=== PATIENT | male | born 1995 | race Caucasian/White ===

== ENCOUNTER 2016-09-01 11:06 | Emergency (ER) | payer SELFPAY ==
[~2016-09-01] VITALS: Wt 78.5 kg
[~2016-09-01 11:06] MED LIST: AZIT250T94 PO; HYDR-3498 PO; IBUP-1542 PO; IBUP800T25 PO; NAPR-260 PO; PEN500 PO
== END 2016-09-01 14:30 | disposition left against medical advice (07) ==
LOC: FTE 11:06
DX: Z53.21 Procedure and treatment not carried out due to patient leaving prior to being seen by health care provider (principal)

== ENCOUNTER 2016-11-12 20:50 | Emergency (ER) | payer OTHER ==
[~2016-11-12] VITALS: Ht 175.3 cm; Wt 85.0 kg
[2016-11-12 20:54] VITALS: Ht 175.3 cm; Wt 85.0 kg
[2016-11-12] MEDS ORDERED: SOD CHLORIDE 0.9% 1,000 ML IV STA (21:41)
[2016-11-12] MEDS ORDERED: ONDANSETRON 4 MG INJ IV STA (21:41)
[2016-11-12] MEDS ORDERED: HYDROCODONE/APAP (5/325) TAB PO ONE (22:00)
[2016-11-12 22:36] LABS: ADD SCAN DIFF NO
[2016-11-12 22:42] LABS: BASOPHILS % 0.2 % (0.0-2.0); EOSINOPHILS # 0.1 10^3/ul (0.0-0.5); EOSINOPHILS % 0.7 % (0.0-7.0); HEMATOCRIT 47.4 % (42.0-52.0); LYMPHOCYTES # 0.7 10^3/ul (0.8-2.9); LYMPHOCYTES % 7.7 % (15.0-51.0); MEAN CORPUSCULAR HEMOGLOBIN 29.9 pg (29.0-33.0); MEAN CORPUSCULAR HGB CONC 33.8 g/dl (32.0-37.0); MEAN CORPUSCULAR VOLUME 88.4 fl (82.0-101.0); MEAN PLATELET VOLUME 10.8 fl (7.4-10.4); MONOCYTE # 1.2 10^3/ul (0.3-0.9); MONOCYTES % 12.2 % (0.0-11.0); NEUTROPHIL # 7.5 10^3/ul (1.6-7.5); PLATELET COUNT 270 10^3/UL (140-415); RED BLOOD COUNT 5.36 10^6/ul (4.70-6.10); WHITE BLOOD COUNT 9.4 10^3/ul (4.8-10.8)
[2016-11-12 22:48] LABS: POTASSIUM 3.7 mmol/L (3.5-5.1)
--- NOTE | 2016-11-12 22:48 | RADRPT ---
PROCEDURE: X-ray right foot. CLINICAL INDICATION: Right foot trauma with generalized pain. TECHNIQUE: 3 views right foot. COMPARISON: None. FINDINGS: No acute fracture or dislocation. Soft tissues unremarkable. IMPRESSION: No acute fracture or dislocation. RPTAT: UU Physician Diaz Date Time Electronically viewed and signed by Physician Diaz on 11/12/2016 22:47 RS/
[2016-11-12 22:50] LABS: INR 0.99; PARTIAL THROMBOPLASTIN TIME 32.6 Sec (25.0-35.0); PROTIME 13.1 Sec (12.2-14.2)
[2016-11-12 22:51] LABS: CREATININE 0.77 mg/dl (0.61-1.24)
[2016-11-12 22:52] LABS: CALCIUM 9.5 mg/dl (8.4-10.2)
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
[2016-11-13] MEDS ORDERED: HYDR-906 PO (00:10)
[2016-11-13] MEDS ORDERED: HYDROCODONE/APAP (5/325) TAB PO ONE (00:30)
[2016-11-13 01:31] VITALS: BP 134/78; PULSE 79; RESP 18; TEMP 98.6
== END 2016-11-13 01:32 | disposition home or self-care (01) ==
LOC: FTE 20:50
DX: R51 Headache (principal); R55 Syncope and collapse; R11.2 Nausea with vomiting, unspecified
CPT/HCPCS: 70450; 73630; 80048; 82962; 85025; 85610; 85730; 93005; J2405; J7030; Z7610; 36415; 96374

== ENCOUNTER 2017-05-18 13:29 | Emergency (ER) | payer OTHER ==
[~2017-05-18] VITALS: Ht 172.7 cm; Wt 90.0 kg
[~2017-05-18 13:29] MED LIST changes: +HYDR-906 PO; -PEN500 PO; +PENI500T PO
[2017-05-18 13:34] VITALS: Ht 172.7 cm; Wt 90.0 kg
[2017-05-18] MEDS ORDERED: IBUP-1542 PO (15:32)
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
== END 2017-05-18 16:01 | disposition home or self-care (01) ==
LOC: FTE 13:29
DX: G62.9 Polyneuropathy, unspecified (principal)
CPT/HCPCS: 29125; Z7502; Z7610

== ENCOUNTER 2019-01-04 19:03 | Emergency (ER) | payer OTHER ==
[~2019-01-04] VITALS: Wt 98.4 kg
[~2019-01-04 19:03] MED LIST changes: +ACET500C5 PO; +AZIT250T PO; -AZIT250T94 PO; +HYDR-4011 PO; -HYDR-906 PO; -IBUP800T25 PO; +IBUP800T48 PO; +MECL12.574 PO; -NAPR-260 PO; +NAPR-985 PO; +ONDA4TAB14 PO
[2019-01-04 19:09] VITALS: BP 147/75; PULSE 91; RESP 18
[2019-01-04] MEDS ORDERED: LIDOCAINE 1% (MPF) 5 ML VIAL INJ ONE (20:00)
[2019-01-04] MEDS ORDERED: BACI28.34 TOP (20:59)
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
== END 2019-01-04 21:09 | disposition home or self-care (01) ==
LOC: FTE 19:03
DX: S61.212A Laceration without foreign body of right middle finger without damage to nail, initial encounter (principal); W26.8XXA Contact with other sharp object(s), not elsewhere classified, initial encounter; Y92.9 Unspecified place or not applicable
CPT/HCPCS: 12001; 73130; Z7502; Z7610

== ENCOUNTER 2019-01-11 20:27 | Emergency (ER) | payer OTHER ==
[~2019-01-11] VITALS: Ht 175.3 cm; Wt 97.6 kg
[~2019-01-11 20:27] MED LIST changes: +BACI28.34 TOP
[2019-01-11 20:38] VITALS: Ht 175.3 cm; Wt 97.6 kg
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
[2019-01-11 23:23] VITALS: BP 163/92; PULSE 75; RESP 16
== END 2019-01-11 23:25 | disposition home or self-care (01) ==
LOC: FTE 20:27
DX: Z48.02 Encounter for removal of sutures (principal)
CPT/HCPCS: 99281

== ENCOUNTER 2019-03-24 18:00 | Emergency (ER) | payer OTHER ==
[~2019-03-24] VITALS: Ht 175.3 cm; Wt 93.8 kg
[~2019-03-24 18:00] MED LIST changes: +AMOX500C2 PO
[2019-03-24 18:05] VITALS: Ht 175.3 cm; Wt 93.8 kg
[2019-03-24 18:56] VITALS: BP 136/82; PULSE 98; RESP 16
[2019-03-24] MEDS ORDERED: IBUPROFEN 800 MG TAB PO ONE (19:00)
[2019-03-24] MEDS ORDERED: AMOXICILLIN 500 MG CAP PO ONE (19:00)
== END 2019-03-24 18:58 | disposition home or self-care (01) ==
LOC: E/R 18:00
DX: J02.9 Acute pharyngitis, unspecified (principal)
CPT/HCPCS: Z7502; Z7610; 99283

== ENCOUNTER 2019-03-31 19:15 | Emergency (ER) | payer OTHER ==
[~2019-03-31] VITALS: Ht 167.6 cm; Wt 94.5 kg
[2019-03-31 19:17] VITALS: Ht 167.6 cm; Wt 94.5 kg
[2019-03-31 21:21] VITALS: BP 148/83; PULSE 82; RESP 18
== END 2019-03-31 21:22 | disposition home or self-care (01) ==
LOC: FTE 19:15
DX: M62.830 Muscle spasm of back (principal)
CPT/HCPCS: 99282

== ENCOUNTER 2019-05-28 05:47 | Emergency (ER) | payer OTHER ==
[~2019-05-28] VITALS: Ht 175.3 cm; Wt 99.0 kg
[~2019-05-28 05:47] MED LIST changes: +CYCL10TA7 PO
[2019-05-28 05:49] VITALS: BP 131/68; PULSE 84; RESP 16; Ht 175.3 cm; Wt 99.0 kg
[2019-05-28] MEDS ORDERED: IBUPROFEN 800 MG TAB PO ONE (06:30)
== END 2019-05-28 06:47 | disposition home or self-care (01) ==
LOC: FTE 05:47
DX: M54.5 Low back pain (principal)
CPT/HCPCS: 99283